=== PATIENT | female | born 1990 | race Native Hawaiian/Other Pacific Islander ===

== ENCOUNTER → 2018-10-07 | Outpatient (CLI) | payer OTHER ==
--- NOTE | 2018-10-07 14:47 | 2DMMODE ---
[facility] [address] [place] [address] 2 D/M-MODE ECHOCARDIOGRAM Name: ALEC AHQTIFFANIE BEST Room #: REG CL [facility]#: [id number] Admission: 10/07/18 Attend Phys: Ezio Murray MD Discharge: Date of : 89 Date of Service: 10/07/18 1446 Report #: [id number] THIS REPORT FOR: //name// APPROVED REPORT Study performed: 10/07/2018 10:27:07 EXAM: Comprehensive 2D, Doppler, and color-flow Echocardiogram Patient Location: Out-Patient Status: routine BSA: 1.85 HR: 78 bpm BP: 110/60 mmHg Rhythm: NSR Other Information Study Quality: Adequate Indications Supraventricular tachycardia. 2D Dimensions RVDd: 40.17 mm IVSd: 8.58 (7-11mm) LVOT Diam: 18.90 (18-24mm) LVDd: 42.76 mm PWd: 7.64 (7-11mm) Ascending Ao: 29.02 (22-36mm) LVDs: 29.60 (25-40mm) Aortic Root: 28.51 mm Volumes Left Atrial Volume (Systole) Single Plane 4CH: 42.45 mL Single Plane 2CH: 31.08 mL LA ESV Index: 22.00 mL/m2 Aortic Valve AoV Peak Alfa.: 1.45 m/s AO Peak Gr.: 8.38 mmHg LVOT Max P.76 mmHg LVOT Max V: 0.97 m/s ZOE Vmax: 1.88 cm2 Mitral Valve E/A Ratio: 1.6 MV Decel. Time: 145.97 ms MV E Max Alfa.: 0.93 m/s [facility] [place] [address] [place] [address] 2 D/M-MODE ECHOCARDIOGRAM Name: ALEC BOURNEHAQTIFFANIE [facility] Room #: REG [facility].#: [id number] Admission: 10/07/18 Attend Phys: Ezio Murray MD Discharge: Date of : 89 Date of Service: 10/07/18 1446 Report #: [id number] MV A Alfa.: 0.59 m/s MV PHT: 42.33 ms IVRT: 103.81 ms Pulmonary Valve PV Peak Alfa.: 0.96 m/s PV Peak Gr.: 3.72 mmHg Pulmonary Vein P Vein S: 0.45 m/s P Vein A: 0.25 m/s P Vein D: 0.60 m/s P Vein A Dur.: 65.7 msec P Vein S/D Ratio: 0.75 Tricuspid Valve TR Peak Alfa.: 1.72 m/s RAP Estimate: 5.00 mmHg TR Peak Gr.: 11.89 mmHg PA Pressure: 17.00 mmHg Left Ventricle The left ventricle is normal size. There is normal LV segmental wall motion. There is normal left ventricular wall thickness. Left ventricular systolic function is normal. LVEF is 60-65%. The left ventricular diastolic function is normal. Right Ventricle The right ventricle is normal size. The right ventricular systolic function is normal. Atria The left atrium size is normal. The right atrium size is normal. Aortic Valve The aortic valve is normal in structure. No aortic regurgitation is present. There is no aortic valvular stenosis. Mitral Valve The mitral valve is normal in structure. Trace mitral regurgitation. Tricuspid Valve The tricuspid valve is normal in structure. Trace tricuspid regurgitation. Estimated PAP is 17mmHg. Pulmonic Valve The pulmonary valve is normal in structure. Trace pulmonic regurgitation. [facility] [address] [place] [address] 2 D/M-MODE ECHOCARDIOGRAM Name: TIFFANIE RAMIREZ [facility] Room #: REG CL [facility]#: [id number] Admission: 10/07/18 Attend Phys: Ezio Murray MD Discharge: Date of : 89 Date of Service: 10/07/18 1446 Report #: [id number] Great Vessels The aortic root is normal in size. The ascending aorta is normal in size. IVC is normal in size and collapses >50% with inspiration. Pericardium There is no pericardial effusion. <Conclusion> The left ventricle is normal size. There is normal left ventricular wall thickness. Left ventricular systolic function is normal. The left ventricular diastolic function is normal. The right ventricle is normal size. The left atrium size is normal. The aortic valve is normal in structure. Trace mitral regurgitation. Trace tricuspid regurgitation. Estimated PAP is 17mmHg. <ELECTRONICALLY SIGNED> By: Ezio Murrya MD 10/07/18 1446 1446 1446 Ezio Murray MD /INF
--- NOTE | 2018-10-08 10:50 | TST ---
[facility] [place] [address] TREADMILL STRESS TEST Name: TIFFANIE RAMIREZ Room #: REG [facility]#: [id number] Admission: 10/07/18 Attend Phys: Ezio Murray MD Discharge: Date of : 89 Date of Service: 10/08/181049 Report #: [id number] THIS REPORT FOR: //name// APPROVED REPORT Patient Location: Out-Patient Room #: Stress Nurse: Palma Guerrero RN Indication: SVT, arrhythmia Procedure: The patient exercise for 10 minutes and 16 seconds on a standard Chidi protocol. The resting heart rate was 90 bpm, increasing to 184 bpm during maximal exercise. This represented 95% of the maximum predicted heart rate for her age. The resting blood pressure was 118/80 mmHg, increasing to 170/67 mmHg. The workload achieved was 12.1 METs. The test was stopped due to fatigue. Conclusion 1. Clinical response, nonischemic. 2. Stress ECG response, nonischemic. 3. Exercise capacity, average. 4. Arrhythmias, none. <ELECTRONICALLY SIGNED> By: Ezio Murray MD 10/08/181049 49 1050 Ezio Murray MD /INF
== END ==
LOC: CV 10:10
DX: I47.1 Supraventricular tachycardia (principal)

== ENCOUNTER → 2018-10-19 | Outpatient (CLI) | payer OTHER ==
[~2018-10-19] VITALS: Ht 157.5 cm; Wt 81.6 kg
[~2018-10-19] MED LIST: ASPIR 8181 MG PO; CARDIZEM CD120 MG PO; PEPCID20 MG PO
--- NOTE | ~2018-10-19 | P ---
[facility] [place] [address] PROCEDURE REPORT Name: TIFFANIE RAMIREZ Room #: REG CLAUDIAMarek Posadas#: [id number] Admission: 10/19/18 Attend Phys: Delroy Soliz MD Discharge: Date of : 89 Report #: [id number] THIS REPORT FOR: //name// CC: Sherry Soliz DATE OF SERVICE: 10/19/2018 PREOPERATIVE DIAGNOSIS: Supraventricular tachycardia. POSTOPERATIVE DIAGNOSIS: Supraventricular tachycardia. PROCEDURES PERFORMED: 1. Comprehensive EP study, CPT code 90502. 2. EP with left atrial pacing and recording, CPT code 63378. 3. Program stimulation pacing after IV drug infusion, CPT code 45451. 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 She is here for EP study and possible ablation. ANESTHESIA: The patient underwent MAC anesthesia with no anesthesia related complications. DESCRIPTION OF PROCEDURE: The patient underwent informed consent. We discussed the details of the procedure including the risks, which included but not limited to bleeding, vascular damage, stroke, [place] as well as damage to the [place] conduction system requiring permanent pacemaker. She understood these risks and is willing to proceed. The patient was brought to the EP laboratory in fasting and unsedated state and prepped and draped in a sterile fashion. I injected lidocaine to the bilateral groins and obtained access to the bilateral femoral veins placing an 8, 6 and 7-Polish short sheath in the right femoral vein and a 6-Polish short sheath in the left femoral vein. Under fluoroscopy, I placed 3 quadripolar catheters in the HRA, His, and RV positions and a decapolar catheter easily in the coronary sinus. At baseline, the patient was in sinus rhythm with sinus cycle length of 560 milliseconds, [place] interval 150 milliseconds, QRS duration 90 milliseconds, QT interval 335 milliseconds, AH interval 90 milliseconds, HV interval 42 milliseconds. Atrial pacing was performed from the left and right atrium. AV block was noted at 290 milliseconds. Atrial ERP is noted 230 milliseconds with a [address] cycle length. There were occasional single AV carla echoes, but no jumps. [facility] [address] [place] [address] PROCEDURE REPORT Name: TIFFANIE RAMIREZ [facility] Room #: REG [facility].#: [id number] Admission: 10/19/18 Attend Phys: Delroy Soliz MD Discharge: Date of : 89 Report #: [id number] Double atrial extrastimuli were delivered and no SVT was induced. Ventricular pacing was performed and VA block was noted at 260 milliseconds. Ventricular ERP was noted at 210 milliseconds at a [address] cycle length. VA conduction was both midline and decremental. Next, isoproterenol infusion was initiated at 1 mcg per minute. AV block was noted at 250 milliseconds. Atrial ERP was noted at 200 milliseconds at [address] cycle length. VA block was noted to be less than 240 milliseconds. Aggressive atrial burst pacing and up to double and triple atrial extrastimuli were delivered and there was no inducible SVT. Isoproterenol was increased to 2 mcg per minute. AV block was noted at 230 milliseconds. No SVT was induced. Then isoproterenol was increased to 5 mcg per minute and AV block was noted at 220 milliseconds. I performed double and triple atrial extrastimuli and again there was no inducible SVT, there was occasional rare single AV carla echoes. The isoproterenol was decreased to 0.5 mcg per minute and testing was performed on this dose and again no SVT was induced. I then turned off isoproterenol and again no SVT could be induced. With single atrial extrastimuli, I did induce atrial fibrillation, which lasted 4 minutes and converted on its own. I believe this was a nonspecific finding. Off isoproterenol, AV block was noted at 300 milliseconds. Post-EP study, the patient was in sinus rhythm with sinus cycle length of 540 milliseconds, [place] interval 150 milliseconds, QRS duration 90 milliseconds, QT interval 330 milliseconds, AH interval 91 milliseconds and HV interval 40 milliseconds. As such, catheters and sheaths were pulled. Hemostasis was obtained and the patient awoke neurologically and hemodynamically intact with no complications and no significant bleeding. CONCLUSIONS: 1. Normal EP study. 2. Normal SA carla function. 3. Normal AV carla function. 4. Normal His-Purkinje function. 5. No inducible arrhythmias on or off isoproterenol. 6. Induction of atrial fibrillation, likely a nonspecific finding that converted on its own. By: 1352 1731 Delroy Soliz MD /nt
[2018-10-19 07:17] VITALS: BP 116/70
[2018-10-19 07:29] LABS: BASOPHILS 1.1 % (0.0-2.0); HEMATOCRIT 42.6 % (37.0-47.0); HEMOGLOBIN 13.7 gm/dL (12.0-15.0); LYMPHOCYTES 29.7 % (24.0-44.0); MCH 21.6 pg (26.0-34.0); MCHC 32.1 g/dL (28.0-37.0); MCV 67.2 fL (80.0-100.0); MONOCYTES 7.3 % (1.0-8.0); PLATELET COUNT 237 thou/uL (150-400); POLYS 56.9 % (36.0-66.0); RBC 6.34 mil/uL (4.20-5.00); RDW 14.9 % (10.5-14.5); WBC 8.7 thou/uL (4.0-11.0)
[2018-10-19 07:36] LABS: CALCIUM 9.3 mg/dL (8.5-10.1); CREATININE 0.7 mg/dL (0.6-1.0); POTASSIUM 4.1 mmol/L (3.5-5.1)
[2018-10-19 07:41] LABS: APTT 25.4 Seconds (24.5-32.8)
[2018-10-19 07:44] LABS: ALBUMIN 4.1 g/dL (3.4-5.0); TOTAL BILIRUBIN 0.3 mg/dL (<0.1-1.0); TOTAL PROTEIN 7.6 g/dL (6.4-8.2)
--- NOTE | 2018-10-19 07:47 | EKG ---
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1990 Requested By: Delroy Soliz Order Number: [id number] MD: Maikel Dotson Measurements Intervals [place] Rate: 74 P: -17 RI: 135 QRS: 37 QRSD: 89 T: 26 QT: 392 QTc: 435 Interpretive Statements Sinus rhythm ST elev, probable normal early repol pattern No previous ECG available for comparison Electronically Signed On 10-19-2018 7:47:36 CROWN BLOCKER by Maikel Dotson [email or web address] <ELECTRONICALLY SIGNED> By: Maikel Dotson MD, [facility] 10/19/18 0747 7 7 Maikel Dotson MD, [facility] /EPI
[2018-10-19 10:48] LABS: ANISOCYTOSIS 1+; MICROCYTES 2+; PLATELET ESTIMATE NORMAL
== END | disposition home or self-care (01) ==
LOC: CATH 06:48
PROVIDERS: Internal Medicine Cardiovascular Disease
DX: I47.1 Supraventricular tachycardia (principal); I49.9 Cardiac arrhythmia, unspecified; K21.9 Gastro-esophageal reflux disease without esophagitis; Z82.49 Family history of ischemic heart disease and other diseases of the circulatory system; Z87.891 Personal history of nicotine dependence; Z87.19 Personal history of other diseases of the digestive system; Z91.040 Latex allergy status; Z79.82 Long term (current) use of aspirin; Z79.899 Other long term (current) drug therapy
CPT/HCPCS: 62110; 62900; 70005

== ENCOUNTER → 2018-11-17 | Outpatient (CLI) | payer OTHER | LOC: ULTRA 15:47 | DX: N83.291 Other ovarian cyst, right side (principal); N92.6 Irregular menstruation, unspecified; M81.8 Other osteoporosis without current pathological fracture ==

== ENCOUNTER → 2019-02-15 | Outpatient (CLI) | payer OTHER | LOC: RAD 15:41 | DX: M25.512 Pain in left shoulder (principal) ==

== ENCOUNTER → 2019-08-13 | Outpatient (CLI) | payer OTHER | LOC: RAD 12:54 | DX: S99.911A Unspecified injury of right ankle, initial encounter (principal); X58.XXXA Exposure to other specified factors, initial encounter; Y93.89 Activity, other specified; Y92.89 Other specified places as the place of occurrence of the external cause; Y99.8 Other external cause status ==

== ENCOUNTER 2019-08-28 10:23 | Emergency (ER) | payer OTHER ==
[~2019-08-28] VITALS: Ht 167.6 cm; Wt 84.4 kg
[2019-08-28 11:11] LABS: ABSOLUTE NEUTROPHILS 4.5 thou/uL (1.4-8.2); BASOPHILS 1.2 % (0.0-2.0); EOSINOPHILS 5.5 % (0.0-3.0); HEMATOCRIT 43.5 % (37.0-47.0); HEMOGLOBIN 13.5 gm/dL (12.0-15.0); LYMPHOCYTES 30.9 % (24.0-44.0); MCH 21.3 pg (26.0-34.0); MCHC 31.1 g/dL (28.0-37.0); MCV 68.4 fL (80.0-100.0); PLATELET COUNT 246 thou/uL (150-400); POLYS 55.4 % (36.0-66.0); RBC 6.36 mil/uL (4.20-5.00); RDW 14.8 % (10.5-14.5); WBC 8.1 thou/uL (4.0-11.0)
[2019-08-28 11:20] LABS: CALCIUM 9.1 mg/dL (8.5-10.1); CREATININE 0.7 mg/dL (0.6-1.0); POTASSIUM 4.6 mmol/L (3.5-5.1)
[2019-08-28] MEDS ORDERED: PROAIR HFA8.5 GM INH (12:01)
[2019-08-28] MEDS ORDERED: PREDNISONE 20 M20 M1 PO (12:01)
[2019-08-28 12:13] VITALS: BP 132/74
[2019-08-28 13:11] LABS: HYPOCHROMASIA 2+; MICROCYTES 2+; TARGET CELLS OCCASIONAL
--- NOTE | 2019-08-30 07:52 | EKG ---
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1990 Requested By: Daniel Arenas Order Number: [id number] MD: Maikel Dotson Measurements Intervals [place] Rate: 60 P: 5 SD: 134 QRS: 53 QRSD: 91 T: 29 QT: 430 QTc: 430 Interpretive Statements Sinus rhythm ST elev, probable normal early repol pattern Compared to ECG 10/19/2018 07:38:45 No significant changes Electronically Signed On 08-30-2019 7:52:02 [employer]ESPERSON [employer]KS by Maikel Dotson [email or web address] <ELECTRONICALLY SIGNED> By: Maikel Dotson MD, [facility] 08/30/19 0752 1044 1044 Maikel Dotson MD, FAC /EPI
== END 2019-08-28 12:14 | disposition home or self-care (01) ==
LOC: ER 10:23
PROVIDERS: Emergency Medicine
DX: J40 Bronchitis, not specified as acute or chronic (principal); Z91.030 Bee allergy status; Z87.891 Personal history of nicotine dependence

== ENCOUNTER 2020-06-21 18:37 | Emergency (ER) | payer OTHER ==
[~2020-06-21] VITALS: Ht 152.4 cm; Wt 81.7 kg
[~2020-06-21 18:37] MED LIST changes: +PREDNISONE 20 M20 M1 PO; +PROAIR HFA8.5 GM INH
[2020-06-21 19:21] LABS: URINE BILIRUBIN NEGATIVE (Negative); URINE BLOOD NEGATIVE (Negative); URINE CLARITY CLEAR; URINE COLOR YELLOW; URINE GLUCOSE-RANDOM* NEGATIVE (Negative); URINE KETONES NEGATIVE (Negative); URINE LEUKOCYTES-REFLEX NEGATIVE (Negative); URINE NITRITE-REFLEX NEGATIVE (Negative); URINE PROTEIN (DIPSTICK) NEGATIVE (Negative); URINE SPECIFIC GRAVITY 1.025 (1.005-1.035); URINE UROBILINOGEN 0.2 E.U./dl (0.2-1.0)
[2020-06-21 19:24] LABS: ABSOLUTE NEUTROPHILS 5.6 thou/uL (1.4-8.2); BASOPHILS 1.3 % (0.0-2.0); EOSINOPHILS 4.7 % (0.0-3.0); HEMATOCRIT 42.1 % (37.0-47.0); HEMOGLOBIN 13.3 gm/dL (12.0-15.0); LYMPHOCYTES 31.4 % (24.0-44.0); MCH 21.7 pg (26.0-34.0); MCHC 31.6 g/dL (28.0-37.0); MCV 68.7 fL (80.0-100.0); MONOCYTES 7.3 % (1.0-8.0); PLATELET COUNT 242 thou/uL (150-400); POLYS 55.3 % (36.0-66.0); RBC 6.13 mil/uL (4.20-5.00); RDW 14.3 % (10.5-14.5); WBC 10.2 thou/uL (4.0-11.0)
[2020-06-21 19:35] LABS: CALCIUM 8.8 mg/dL (8.5-10.1); CREATININE 0.6 mg/dL (0.6-1.0); POTASSIUM 4.1 mmol/L (3.5-5.1)
[2020-06-21 19:42] LABS: ALBUMIN 4.1 g/dL (3.4-5.0); TOTAL BILIRUBIN 0.1 mg/dL (0.2-1.0); TOTAL PROTEIN 7.6 g/dL (6.4-8.2)
[2020-06-21 20:03] LABS: HYPOCHROMASIA 1+; MICROCYTES 1+
[2020-06-21] MEDS ORDERED: ONDANSETRON HCL4 M2 PO (21:38)
[2020-06-21] MEDS ORDERED: NORCO 10-325 T1 EACH PO (21:38)
[2020-06-21] MEDS ORDERED: CARAFATE 1 GM TA1 G1 PO (21:38)
[2020-06-21 21:55] VITALS: BP 130/76
== END 2020-06-21 21:55 | disposition home or self-care (01) ==
LOC: ER 18:37
PROVIDERS: Physician Assistant
DX: K25.9 Gastric ulcer, unspecified as acute or chronic, without hemorrhage or perforation (principal); R11.2 Nausea with vomiting, unspecified; Z90.49 Acquired absence of other specified parts of digestive tract; Z79.899 Other long term (current) drug therapy; Z79.82 Long term (current) use of aspirin; Z91.040 Latex allergy status; Z87.891 Personal history of nicotine dependence

== ENCOUNTER → 2020-06-23 | Outpatient (CLI) | payer OTHER ==
[~2020-06-23] MED LIST changes: +CARAFATE 1 GM TA1 G1 PO; +NORCO 10-325 T1 EACH PO; +ONDANSETRON HCL4 M2 PO
== END ==
LOC: RAD 15:06
PROVIDERS: ATTEND Nurse Practitioner
DX: N83.201 Unspecified ovarian cyst, right side (principal); K76.0 Fatty (change of) liver, not elsewhere classified; R10.11 Right upper quadrant pain

== ENCOUNTER 2020-08-02 09:57 | Emergency (ER) | payer OTHER ==
[~2020-08-02] VITALS: Ht 160 cm; Wt 81.7 kg
[2020-08-02] MEDS ORDERED: TOPROL XL50 MG (10:07)
[2020-08-02] MEDS ORDERED: LEXAPRO20 MG PO (10:08)
[2020-08-02 10:17] LABS: URINE BILIRUBIN NEGATIVE (Negative); URINE BLOOD 1+ (Negative); URINE CLARITY SL CLOUDY; URINE COLOR YELLOW; URINE GLUCOSE-RANDOM* NEGATIVE (Negative); URINE KETONES NEGATIVE (Negative); URINE NITRITE-REFLEX NEGATIVE (Negative); URINE PROTEIN (DIPSTICK) NEGATIVE (Negative); URINE UROBILINOGEN 0.2 E.U./dl (0.2-1.0)
[2020-08-02 10:19] LABS: URINE LEUKOCYTES-REFLEX 3+ (Negative)
[2020-08-02 10:33] LABS: CASTS None Seen /LPF (None Seen); CRYSTALS None Seen /LPF (None Seen); SQUAMOUS 0-3 Few /LPF (0-3); URINE RBC None Seen /HPF (0-2); URINE WBC-REFLEX >25 Many /HPF (0-5)
[2020-08-02 10:34] LABS: BACTERIA-REFLEX 1-9 Few /HPF (None Seen)
[2020-08-02 11:40] LABS: ABSOLUTE NEUTROPHILS 8.2 thou/uL (1.4-8.2); BASOPHILS 1.2 % (0.0-2.0); EOSINOPHILS 3.6 % (0.0-3.0); HEMATOCRIT 42.1 % (37.0-47.0); HEMOGLOBIN 13.5 gm/dL (12.0-15.0); LYMPHOCYTES 19.4 % (24.0-44.0); MCH 21.9 pg (26.0-34.0); MCHC 32.1 g/dL (28.0-37.0); MCV 68.3 fL (80.0-100.0); MONOCYTES 5.1 % (1.0-8.0); PLATELET COUNT 250 thou/uL (150-400); POLYS 70.7 % (36.0-66.0); RBC 6.17 mil/uL (4.20-5.00); RDW 14.5 % (10.5-14.5); WBC 11.6 thou/uL (4.0-11.0)
[2020-08-02 12:27] LABS: POTASSIUM 4.3 mmol/L (3.5-5.1)
[2020-08-02 12:30] LABS: CREATININE 0.8 mg/dL (0.6-1.0)
[2020-08-02 12:32] LABS: LIPASE 116.4 U/L (73-393)
[2020-08-02 12:33] LABS: CALCIUM 8.5 mg/dL (8.5-10.1); TOTAL BILIRUBIN 0.1 mg/dL (0.2-1.0)
[2020-08-02 12:35] LABS: ALBUMIN 4.4 g/dL (3.4-5.0); TOTAL PROTEIN 7.2 g/dL (6.4-8.2)
[2020-08-02 12:38] LABS: GLUCOSE 104.4 mg/dL (74-106)
[2020-08-02] MEDS ORDERED: ZOFRAN ODT4 MG PO (12:56)
[2020-08-02] MEDS ORDERED: PHENAZOPYRIDIN200 M2 PO (12:56)
[2020-08-02] MEDS ORDERED: KEFLEX500 M1 PO (12:56)
[2020-08-02] MEDS ORDERED: FLEXERIL PO (12:56)
[2020-08-02 13:06] VITALS: BP 118/81
[2020-08-02 13:22] LABS: HYPOCHROMASIA 2+
[2020-08-02 13:24] LABS: ANISOCYTOSIS 1+; MICROCYTES 1+; SCHISTOCYTES OCCASIONAL
== END 2020-08-02 13:07 | disposition home or self-care (01) ==
LOC: ER 09:57
PROVIDERS: Emergency Medicine; Physician Assistant
DX: N39.0 Urinary tract infection, site not specified (principal); Z79.899 Other long term (current) drug therapy; Z87.891 Personal history of nicotine dependence; Z91.040 Latex allergy status

== ENCOUNTER 2020-10-03 11:58 | Emergency (ER) | payer OTHER ==
[~2020-10-03] VITALS: Ht 160 cm; Wt 81.7 kg
[~2020-10-03 11:58] MED LIST changes: +FLEXERIL PO; +KEFLEX500 M1 PO; +LEXAPRO20 MG PO; +PHENAZOPYRIDIN200 M2 PO; +TOPROL XL50 MG; +ZOFRAN ODT4 MG PO
[2020-10-03 12:41] LABS: ABSOLUTE NEUTROPHILS 5.4 thou/uL (1.4-8.2); BASOPHILS 1.2 % (0.0-2.0); EOSINOPHILS 3.5 % (0.0-3.0); HEMATOCRIT 45.5 % (37.0-47.0); HEMOGLOBIN 14.3 gm/dL (12.0-15.0); LYMPHOCYTES 31.3 % (24.0-44.0); MCH 21.4 pg (26.0-34.0); MCHC 31.5 g/dL (28.0-37.0); MCV 67.8 fL (80.0-100.0); MONOCYTES 3.8 % (1.0-8.0); PLATELET COUNT 261 thou/uL (150-400); POLYS 60.2 % (36.0-66.0); RBC 6.71 mil/uL (4.20-5.00); RDW 14.6 % (10.5-14.5)
[2020-10-03 12:43] LABS: ANION GAP 10 mmol/L (7-16); BUN 9 mg/dL (7-18); CHLORIDE 99 mmol/L (98-107); CO2 27 mmol/L (21-32); CREATININE 0.8 mg/dL (0.6-1.0); GLUCOSE 120 mg/dL (74-106); POTASSIUM 3.9 mmol/L (3.5-5.1); SODIUM 136 mmol/L (136-145)
--- NOTE | 2020-10-03 12:46 | EKG ---
[address] [address] ELECTROCARDIOGRAM REPORT Name: TIFFANIE RAMIREZ Room #: [facility].#: [id number] Admission: Attend Phys: Discharge: Date of : 89 Report #: [id number] [facility] ED Test Date: 2020-10-03 Test Time: 12:18:04 Pat Name: TIFFANIE HAQ Department: Room: Gender: F [employer]: GARETH : 1990 Requested By: Benny Diego Order Number: [id number] MD: Keegan Maldonado Measurements Intervals [place] Rate: 85 P: 34 NE: 131 QRS: 50 QRSD: 87 T: 20 QT: 380 QTc: 452 Interpretive Statements Sinus rhythm Compared to ECG 08/28/2019 10:44:55 ST (T wave) deviation no longer present Electronically Signed On 10-03-2020 12:46:32 IMPORT EXPORT MANAGER by Keegan Maldonado [email or web address] <ELECTRONICALLY SIGNED> By: Keegan Maldonado MD, [facility] 10/03/20 1246 1218 1218 Keegan Maldonado MD, FACC /EPI
[2020-10-03 12:54] LABS: ALBUMIN 4.7 g/dL (3.4-5.0); MAGNESIUM 2.1 mg/dL (1.8-2.4); SGOT 33 U/L (15-37); SGPT 69 U/L (30-65); TOTAL BILIRUBIN 0.3 mg/dL (0.2-1.0); TOTAL PROTEIN 8.5 g/dL (6.4-8.2); TROPONIN-I <0.06 ng/mL (<0.06)
[2020-10-03 13:32] LABS: URINE BILIRUBIN NEGATIVE (Negative); URINE BLOOD NEGATIVE (Negative); URINE CLARITY CLEAR; URINE COLOR YELLOW; URINE GLUCOSE-RANDOM* NEGATIVE (Negative); URINE KETONES NEGATIVE (Negative); URINE LEUKOCYTES-REFLEX NEGATIVE (Negative); URINE NITRITE-REFLEX NEGATIVE (Negative); URINE PROTEIN (DIPSTICK) NEGATIVE (Negative); URINE SPECIFIC GRAVITY 1.015 (1.005-1.035); URINE UROBILINOGEN 0.2 E.U./dl (0.2-1.0)
[2020-10-03] MEDS ORDERED: NORCO 5-325 TA1 EAC2 PO (16:30)
[2020-10-03 16:42] VITALS: BP 118/68
== END 2020-10-03 16:36 | disposition home or self-care (01) ==
LOC: ER 11:58
PROVIDERS: Emergency Medicine
DX: R07.89 Other chest pain (principal); R55 Syncope and collapse; Z86.79 Personal history of other diseases of the circulatory system; Z79.82 Long term (current) use of aspirin; Z79.899 Other long term (current) drug therapy; Z87.891 Personal history of nicotine dependence; Z91.040 Latex allergy status; Z20.828 Contact with and (suspected) exposure to other viral communicable diseases

== ENCOUNTER 2021-06-24 10:10 | Emergency (ER) | payer BC ==
[~2021-06-24] VITALS: Ht 160 cm; Wt 68.0 kg
[~2021-06-24 10:10] MED LIST changes: +NORCO 5-325 TA1 EAC2 PO
[2021-06-24 10:54] LABS: HEMATOCRIT 42.7 % (37.0-47.0); HEMOGLOBIN 13.1 gm/dL (12.0-15.0); MCH 21.2 pg (26.0-34.0); MCHC 30.7 g/dL (28.0-37.0); MCV 69.2 fL (80.0-100.0); PLATELET COUNT 259 thou/uL (150-400); RBC 6.17 mil/uL (4.20-5.00); RDW 15.1 % (10.5-14.5); WBC 12.4 thou/uL (4.0-11.0)
[2021-06-24 10:54] LABS: URINE BILIRUBIN NEGATIVE (Negative); URINE BLOOD 3+ (Negative); URINE CLARITY CLOUDY; URINE COLOR YELLOW; URINE GLUCOSE-RANDOM* NEGATIVE (Negative); URINE KETONES NEGATIVE (Negative); URINE NITRITE-REFLEX NEGATIVE (Negative); URINE PROTEIN (DIPSTICK) NEGATIVE (Negative); URINE UROBILINOGEN 0.2 E.U./dl (0.2-1.0)
[2021-06-24 11:01] LABS: CALCIUM 8.7 mg/dL (8.5-10.1); CREATININE 0.7 mg/dL (0.6-1.0); POTASSIUM 4.6 mmol/L (3.5-5.1)
[2021-06-24 11:07] LABS: ALBUMIN 3.9 g/dL (3.4-5.0); TOTAL BILIRUBIN 0.2 mg/dL (0.2-1.0); TOTAL PROTEIN 7.1 g/dL (6.4-8.2)
[2021-06-24 11:14] LABS: URINE LEUKOCYTES-REFLEX 3+ (Negative)
[2021-06-24 11:32] LABS: SQUAMOUS 0-3 Few /LPF (0-3)
[2021-06-24 11:33] LABS: URINE RBC >20 Many /HPF (NONE SEEN); URINE WBC-REFLEX >25 Many /HPF (0-5)
[2021-06-24 11:34] LABS: BACTERIA-REFLEX >30 Many /HPF (None Seen)
[2021-06-24 12:49] LABS: ABSOLUTE NEUTROPHILS 6.8 thou/uL (1.4-8.2)
[2021-06-24 12:54] LABS: HYPOCHROMASIA 1+; MICROCYTES 1+
[2021-06-24] MEDS ORDERED: COMPAZINE10 MG PO (12:54)
[2021-06-24] MEDS ORDERED: NORCO 10-325 T1 EACH PO (12:54)
[2021-06-24] MEDS ORDERED: PYRIDIUM200 MG PO (12:54)
[2021-06-24] MEDS ORDERED: CEPHALEXIN500 MG PO (12:54)
[2021-06-24 13:07] VITALS: BP 97/40
== END 2021-06-24 13:10 | disposition home or self-care (01) ==
LOC: ER 10:10
PROVIDERS: Emergency Medicine
DX: N12 Tubulo-interstitial nephritis, not specified as acute or chronic (principal); F17.210 Nicotine dependence, cigarettes, uncomplicated; Z91.040 Latex allergy status

== ENCOUNTER 2021-06-30 11:44 | Emergency (ER) | payer BC ==
[~2021-06-30] VITALS: Ht 157.5 cm; Wt 72.6 kg
[~2021-06-30 11:44] MED LIST changes: +CEPHALEXIN500 MG PO; +COMPAZINE10 MG PO; +PYRIDIUM200 MG PO
[2021-06-30 12:25] LABS: ABSOLUTE NEUTROPHILS 4.6 thou/uL (1.4-8.2); BASOPHILS 0.9 % (0.0-2.0); EOSINOPHILS 7.2 % (0.0-3.0); HEMATOCRIT 41.1 % (37.0-47.0); HEMOGLOBIN 13.2 gm/dL (12.0-15.0); LYMPHOCYTES 29.7 % (24.0-44.0); MCH 21.9 pg (26.0-34.0); MCHC 32.1 g/dL (28.0-37.0); MCV 68.3 fL (80.0-100.0); MONOCYTES 9.6 % (1.0-8.0); PLATELET COUNT 274 thou/uL (150-400); POLYS 52.6 % (36.0-66.0); RBC 6.03 mil/uL (4.20-5.00); RDW 14.9 % (10.5-14.5); WBC 8.7 thou/uL (4.0-11.0)
[2021-06-30 12:35] LABS: URINE BILIRUBIN NEGATIVE (Negative); URINE BLOOD NEGATIVE (Negative); URINE CLARITY CLEAR; URINE COLOR YELLOW; URINE GLUCOSE-RANDOM* NEGATIVE (Negative); URINE KETONES NEGATIVE (Negative); URINE LEUKOCYTES-REFLEX NEGATIVE (Negative); URINE PROTEIN (DIPSTICK) NEGATIVE (Negative); URINE SPECIFIC GRAVITY 1.025 (1.005-1.035); URINE UROBILINOGEN 0.2 E.U./dl (0.2-1.0)
[2021-06-30 12:35] LABS: CALCIUM 8.4 mg/dL (8.5-10.1); CREATININE 0.8 mg/dL (0.6-1.0)
[2021-06-30 12:38] LABS: URINE NITRITE-REFLEX POSITIVE (Negative)
[2021-06-30 12:38] LABS: POTASSIUM 4.4 mmol/L (3.5-5.1)
[2021-06-30 12:41] LABS: TOTAL BILIRUBIN 0.4 mg/dL (0.2-1.0); TOTAL PROTEIN 7.2 g/dL (6.4-8.2)
[2021-06-30 13:26] LABS: SQUAMOUS 4-10 Moderate /LPF (0-3)
[2021-06-30 13:27] LABS: CASTS None Seen /LPF (None Seen); CRYSTALS None Seen /LPF (None Seen)
[2021-06-30 13:28] LABS: URINE RBC None Seen /HPF (NONE SEEN); URINE WBC-REFLEX 6-15 Few /HPF (0-5)
[2021-06-30] MEDS ORDERED: NAPROSYN500 MG PO (13:51)
[2021-06-30] MEDS ORDERED: ZUPLENZ4 MG PO (13:51)
[2021-06-30 14:23] LABS: HYPOCHROMASIA 2+; MICROCYTES 2+
[2021-06-30] MEDS ORDERED: CIPRO500 M1 PO (14:52)
[2021-06-30] MEDS ORDERED: HYDROCODON-ACE1 EAC7 PO (14:57)
[2021-06-30 15:31] VITALS: BP 109/68
== END 2021-06-30 15:35 | disposition home or self-care (01) ==
LOC: ER 11:44
PROVIDERS: Nurse Practitioner
DX: N39.0 Urinary tract infection, site not specified (principal); Z20.822 Contact with and (suspected) exposure to COVID-19; R11.2 Nausea with vomiting, unspecified; Z79.891 Long term (current) use of opiate analgesic; Z79.1 Long term (current) use of non-steroidal anti-inflammatories (NSAID); Z79.899 Other long term (current) drug therapy; Z79.82 Long term (current) use of aspirin; Z91.040 Latex allergy status; Z87.891 Personal history of nicotine dependence

== ENCOUNTER 2021-10-30 19:33 | Emergency (ER) | payer BC ==
[~2021-10-30] VITALS: Ht 160 cm; Wt 81.7 kg
[~2021-10-30 19:33] MED LIST changes: +CIPRO500 M1 PO; +HYDROCODON-ACE1 EAC7 PO; +NAPROSYN500 MG PO; +ZUPLENZ4 MG PO
[2021-10-30 20:08] LABS: URINE BILIRUBIN NEGATIVE (Negative); URINE BLOOD NEGATIVE (Negative); URINE CLARITY CLEAR; URINE COLOR YELLOW; URINE GLUCOSE-RANDOM* NEGATIVE (Negative); URINE KETONES NEGATIVE (Negative); URINE LEUKOCYTES-REFLEX TRACE (Negative); URINE NITRITE-REFLEX NEGATIVE (Negative); URINE PROTEIN (DIPSTICK) NEGATIVE (Negative); URINE UROBILINOGEN 0.2 E.U./dl (0.2-1.0)
[2021-10-30 20:47] LABS: ABSOLUTE NEUTROPHILS 4.5 thou/uL (1.4-8.2); BASOPHILS 1.2 % (0.0-2.0); EOSINOPHILS 5.6 % (0.0-3.0); HEMATOCRIT 41.4 % (37.0-47.0); HEMOGLOBIN 13.3 gm/dL (12.0-15.0); LYMPHOCYTES 32.9 % (24.0-44.0); MCH 21.7 pg (26.0-34.0); MCHC 32.1 g/dL (28.0-37.0); MCV 67.8 fL (80.0-100.0); MONOCYTES 6.2 % (1.0-8.0); PLATELET COUNT 271 thou/uL (150-400); POLYS 54.1 % (36.0-66.0); RBC 6.12 mil/uL (4.20-5.00); RDW 14.9 % (10.5-14.5); WBC 8.4 thou/uL (4.0-11.0)
[2021-10-30 21:00] LABS: CREATININE 0.7 mg/dL (0.6-1.0); POTASSIUM 3.9 mmol/L (3.5-5.1)
[2021-10-30 21:06] LABS: ALBUMIN 4.6 g/dL (3.4-5.0); TOTAL BILIRUBIN 0.3 mg/dL (0.2-1.0); TOTAL PROTEIN 8.3 g/dL (6.4-8.2)
[2021-10-30] MEDS ORDERED: CIPROFLOXACIN500 M1 PO (22:04)
[2021-10-30 22:23] VITALS: BP 140/87
== END 2021-10-30 22:20 | disposition home or self-care (01) ==
LOC: ER 19:33
PROVIDERS: Nurse Practitioner
DX: R10.31 Right lower quadrant pain (principal); Z79.82 Long term (current) use of aspirin; Z79.891 Long term (current) use of opiate analgesic; Z79.899 Other long term (current) drug therapy; Z91.040 Latex allergy status; Z87.891 Personal history of nicotine dependence